=== PATIENT | male | born 1950 | race Caucasian/White ===

== ENCOUNTER → 2017-04-05 | Day surgery (SDC) | payer MEDICARE, MEDICAID ==
[~2017-04-05] VITALS: Ht 165.1 cm; Wt 84.0 kg
[~2017-04-05] MED LIST: BENADRYL50 MG PO; CLARITIN10 MG PO; FLOMAX0.4 MG PO; K-TAB ER20 MEQ PO; LASIX20 MG PO; LASIX40 MG PO; OMEPRAZOLE40 MG PO; PAXIL CR12.5 MG PO; RISPERDAL1 MG PO; SALINE NASAL M126 ML NOSE; VASOTEC5 MG PO; ZOCOR20 M1 PO; ZYPREXA5 MG PO
--- NOTE | ~2017-04-05 | OR ---
PATIENT'S NAME: TAWNY RENTERIA [facility] AGE: 66 Y [address] ROOM: [place] [address] LOCATION: [facility] ADMIT DATE: 04/05/2017 OR/Procedure Report DISCHARGE DATE: FAMILY PHYSICIAN: Arcadio Solorzano MD ATTENDING PHYSICIAN: Lucy Vivar SURGEON: Lucy Vivar DDS PLASTICS FITTER: I was assisted by Lacy Pastor. DATE OF PROCEDURE: 04/05/2017 PREOPERATIVE DIAGNOSIS: Oral exam, radiographs, prophy with scaling, and possible restorations. POSTOPERATIVE DIAGNOSIS: Oral exam, radiographs, prophy with scaling, and no restorations. PROCEDURES PERFORMED: Oral exam, radiographs, prophy with or without scaling and with or without mandaen. INDICATIONS: The patient arrived at outpatient in good health and n.p.o. The patient needs an oral exam with radiographs and a prophy and is mentally challenged and cannot cooperate for treatment in the office. There was a presurgical consult with his wire stitcher operator and all questions were answered. DESCRIPTION OF PROCEDURE: The patient was taken to the OR. In the supine position, the patient was prepped and draped in the usual manner. The patient was nasally intubated and administered general anesthesia. An IV was placed prior to the intubation. A throat pack and Isodry were placed to occlude the pharynx and as a mouth prop, an oral exam, 4 bitewing and 2 occlusal radiographs, an adult prophy with scaling, and full mouth debridement using the Cavitron. The patient had no decay present. IV Tylenol 1000 mg was administered to the patient for postop discomfort. The mouth was rinsed and the throat pack and Isodry were removed. 3M DONTRELL Vanish 5% sodium fluoride varnish was applied to all dentition. Blood loss was minimal. The patient tolerated the procedure well and was transferred to recovery in good and stable condition. There was a postsurgical consult with his wire stitcher operator and all questions were answered. LUCY VIVAR DDS TLP/modl PATIENT'S NAME: TAWNY RENTERIA [facility] AGE: 66 Y [address] ROOM: [place] [address] LOCATION: [facility] ADMIT DATE: 04/05/2017 OR/Procedure Report DISCHARGE DATE: FAMILY PHYSICIAN: Arcadio Solorzano MD ATTENDING PHYSICIAN: Lucy Vivar /[id number] d: 04/05/17 1849 t: 04/08/17 1623, OPERATIVE SUMMARY
== END | disposition disaster alternative care site (69) ==
LOC: GPOC 04-02 10:00 → GSDC 08:56 → GPOC 10:00
PROC: 0WC3XZZ Extirpation of Matter from Oral Cavity and Throat, External Approach (ICD-10-PCS; principal; 2017-04-05)
DX: K02.9 Dental caries, unspecified (principal); I25.10 Atherosclerotic heart disease of native coronary artery without angina pectoris; E78.00 Pure hypercholesterolemia, unspecified; I10 Essential (primary) hypertension; I50.20 Unspecified systolic (congestive) heart failure; E11.9 Type 2 diabetes mellitus without complications; E78.5 Hyperlipidemia, unspecified; G40.909 Epilepsy, unspecified, not intractable, without status epilepticus; Z98.890 Other specified postprocedural states; Z88.8 Allergy status to other drugs, medicaments and biological substances; Z79.899 Other long term (current) drug therapy
CPT/HCPCS: J0131; J1100; J2001; J2250; J2405; J7030